=== PATIENT | female | born 1935 | race Caucasian/White ===

== ENCOUNTER 2019-10-22 15:15 | Emergency (ER) | payer MEDICARE ==
[2019-10-22 16:01] LABS: ABSOLUTE NEUTROPHIL COUNT 3.98; HEMATOCRIT 36.6 % (35.0-47.0); HEMOGLOBIN 11.1 gm/dl (11.6-16.0); MEAN CELL VOLUME 100.3 fl (81-97); MEAN CORPUSCULAR HEMOGLOBIN 30.4 pg (27-33); MEAN CORPUSCULAR HGB CONC 30.3 g/dl (32-36); MEAN PLATELET VOLUME 10.5 fl (7.4-10.4); PLATELET COUNT 237 K/uL (130-400); RED BLOOD COUNT 3.65 M/uL (3.80-5.40); RED CELL DISTRIBUTION WIDTH 14.9 % (11.5-14.5); WHITE BLOOD COUNT W/O DIFF 7.1 K/uL (4.2-12.2)
[2019-10-22 16:15] LABS: BLOOD UREA NITROGEN 13 mg/dL (8-23)
[2019-10-22 16:16] LABS: CREATININE 0.6 mg/dL (0.5-0.9); EST GLOMERULAR FILTRATION RATE > 60 mL/min; PLATELET ESTIMATE NORMAL (NORMAL); TOTAL PROTEIN 6.8 g/dL (6.6-8.7)
[2019-10-22 16:18] LABS: GLUCOSE,RANDOM 231 mg/dL (74-109)
[2019-10-22 16:21] LABS: ALB/GLOB RATIO 1.2 (1.1-1.8); ALBUMIN 3.7 g/dL (4.0-5.0); ALKALINE PHOSPHATASE 122 U/L (35-104); ALT/SGPT 10 U/L (<33); AST/SGOT 16 U/L (10.0-35.0)
--- NOTE | 2019-10-22 16:23 | Emergency Department Record ---
History of Present Illness - General Chief Complaint: Shortness of breath Stated Complaint: COUGH AND SOB Time Seen by Provider: 10/22/19 15:27 Source: Patient Mode of Arrival: Wheelchair Limitations: No limitations - History of Present Illness Initial Comments: pt here for increasing sob and cough. no fevers. MD Complaint: Cough, Shortness of breath -: Days(s) Severity: Mild Improves With: Nothing Worsens With: Nothing Known History Of: COPD Associated Symptoms: Cough Treatments Prior to Arrival: Bronchodilator - Related Data Home Oxygen Therapy: No Home Medications Medication Instructions Recorded Confirmed Last Taken Atorvastatin Calcium 20 mg PO DAILY 10/22/19 10/22/19 10/22/19 Calcium Carbonate/Vitamin D3 1 each PO DAILY 10/22/19 10/22/19 10/22/19 [Oyster Shell 250-Vit D3 125 Tb] Carvedilol 6.25 mg PO BID 10/22/19 10/22/19 10/22/19 Cetirizine HCl 10 mg PO BID 10/22/19 10/22/19 10/22/19 Clonidine HCl 0.1 mg PO BID 10/22/19 10/22/19 10/22/19 Famotidine 20 mg PO DAILY 10/22/19 10/22/19 10/22/19 Insulin Lispro Protamin/Lispro 23 unit SQ BID 10/22/19 10/22/19 10/22/19 [Humalog Mix 75-25 Kwikpen] Ipratropium/Albuterol [Duoneb] 3 ml IH Q4H 10/22/19 10/22/19 10/22/19 Multivitamin [Multi-Vitamin Daily] 1 each PO DAILY 10/22/19 10/22/19 Unknown Nystatin 1,000,000 unit ASDIR 10/22/19 10/22/19 Unknown Potassium Chloride 20 meq PO DAILY 10/22/19 10/22/19 10/22/19 Allergies Allergy/AdvReac Type Severity Reaction Status Date / Time JAYLEEN Inhibitors Allergy PT UNSURE Verified 10/22/19 15:28 OF REACTION codeine Allergy PT UNSURE Verified 10/22/19 15:28 OF REACTION losartan Allergy PT UNSURE Verified 10/22/19 15:28 OF REACTION montelukast Allergy PT UNSURE Verified 10/22/19 15:28 OF REACTION Penicillins Allergy PT UNSURE Verified 10/22/19 15:28 OF REACTION Sulfa (Sulfonamide Allergy PT UNSURE Verified 10/22/19 15:28 Antibiotics) OF REACTION Travel/Exposure Screening - Travel/Exposure Within Last 30 Days Have you traveled within the last 30 days?: No Additional Travel Detail:: T - Additonal Travel/Exposure Details Have you been exposed to anyone with a communicable illness?: No Exposure Details:: T Review of Systems Constitutional: Reports: Weakness. Denies: Chills, Fever, Malaise, Night sweats Eyes: Denies: Eye discharge, Eye pain, Photophobia, Vision change ENT: Reports: Congestion. Denies: Dental pain, Ear pain, Epistaxis Respiratory: Reports: Cough, Dyspnea. Denies: Hemoptysis, Stridor, Wheezes Cardiovascular: Reports: Arrhythmia, Chest pain, Dyspnea on exertion, Orthopnea, Palpitations. Denies: Murmurs Endocrine: Reports: Fatigue. Denies: Heat or cold intolerance, Polydipsia, Polyuria Gastrointestinal: Denies: Abdominal pain, Constipation, Diarrhea Genitourinary: Reports: As per HPI. Denies: Abnormal menses, Discharge Musculoskeletal: Reports: As per HPI, Arthralgia. Denies: Back pain, Gout Skin: Reports: As per HPI. Denies: Bruising, Change in color, Rash Neurological: Denies: Abnormal gait, Confusion, Headache Psychiatric: Denies: Anxiety, Auditory hallucinations, Suicidal thoughts, Visual hallucinations Hematological/Lymphatic: Denies: Anemia, Easy bleeding, Easy bruising Past Medical History - SOCIAL HISTORY Smoking Status: Never smoker Alcohol Use: None Drug Use: None - RESPIRATORY Hx Respiratory Disorders: Yes Hx COPD: Yes - CARDIOVASCULAR Hx Cardio Disorders: Yes Hx Hypertension: Yes Hx Irregular Heartbeat: Yes Comment:: high cholesterol - GI Hx GI Disorders: No - Hx Genitourinary Disorders: No - ENDOCRINE Hx Endocrine Disorders: Yes Hx Diabetes: Yes - MUSCULOSKELETAL Hx Musculoskeletal Disorders: No - PSYCH Hx Psych Problems: No - HEMATOLOGY/ONCOLOGY Hx Hematology/Oncology Disorders: No Family Medical History Any Significant Family History?: No Physical Exam - General General Appearance: Alert, Oriented x3, Cooperative, Mild distress - Head Head exam: Normal inspection - Eye Eye exam: Normal appearance, PERRL, EOMI Pupils: Normal accommodation - ENT ENT exam: Normal exam, Mucous membranes moist, Normal external ear exam, Normal orophraynx Ear exam: Normal external inspection. negative: External canal tenderness Nasal Exam: Normal inspection. negative: Discharge, Sinus tenderness Mouth exam: Normal external inspection, Tongue normal Teeth exam: Normal inspection. negative: Dental caries Throat exam: Normal inspection. negative: Tonsillar erythema, Tonsillar exudate - Neck Neck exam: Normal inspection, Full ROM. negative: Tenderness - Respiratory Respiratory exam: Normal lung sounds bilaterally. negative: Respiratory distress - Cardiovascular Cardiovascular Exam: Regular rate, Normal rhythm, Normal heart sounds - GI/Abdominal GI/Abdominal exam: Soft, Normal bowel sounds. negative: Tenderness - Rectal Rectal exam: Deferred - exam: Deferred - Extremities Extremities exam: Normal inspection, Full ROM, Normal capillary refill. negative: Tenderness - Back Back exam: Reports: Normal inspection, Full ROM. Denies: Muscle spasm, Rash noted, Tenderness - Neurological Neurological exam: Alert, CN II-XII intact, Normal gait, Oriented X3 - Psychiatric Psychiatric exam: Normal affect, Normal mood - Skin Skin exam: Dry, Intact, Normal color, Warm Course Vital Signs 10/22/19 10/22/19 10/22/19 15:25 15:31 16:15 Temperature 98.2 F Pulse Rate [ 94 H Left Radial] Respiratory 22 Rate Blood Pressure 198/101 [Left Arm] Pulse Ox 97 97 - Reevaluation(s) Reevaluation #1: 10/22/19 18:28 pt feels better. we attempted to get records and ekg for 3 hrs from [facility] and never received anything. ekg shows lbbb. sats 91-95 Medical Decision Making - Lab Data Result diagrams: 10/22/19 15:50 10/22/19 15:50 Lab Results 10/22/19 10/22/19 10/22/19 Range/Units 15:50 15:50 15:50 WBC 7.1 (4.2-12.2) K/uL RBC 3.65 L (3.80-5.40) M/uL Hgb 11.1 L (11.6-16.0) gm/dl Hct 36.6 (35.0-47.0) % MCV 100.3 H (81-97) fl MCH 30.4 (27-33) pg MCHC 30.3 L (32-36) g/dl RDW 14.9 H (11.5-14.5) % Plt Count 237 (130-400) K/uL MPV 10.5 H (7.4-10.4) fl Neutrophils % 61.0 (47-80) % Eosinophils % Not Reportable Basophils % Not Reportable Absolute Neutrophils 3.98 Lymphocytes 27.0 (16-45) % Monocytes 10.0 H (0-9) % Platelet Estimate Normal (NORMAL) RBC Morphology Normal Eosinophil Count 2.0 (0-6) % D-Dimer 0.89 H (0-0.59) mg/L FEU Sodium 137 (136-145) mmol/L Potassium 4.2 (3.4-4.5) mmol/L Chloride 97 L (98-107) mmol/L Carbon Dioxide 28.0 (22-29) mmol/L Anion Gap 12.0 (7-16) BUN 13 (8-23) mg/dL Creatinine 0.6 (0.5-0.9) mg/dL Estimated GFR > 60 mL/min Random Glucose 231 H (74-109) mg/dL Calcium 9.4 (8.8-10.2) mg/dL Total Bilirubin 0.30 (0.2-1.0) mg/dL AST 16 (10.0-35.0) U/L ALT 10 (<33) U/L Alkaline Phosphatase 122 H (35-104) U/L Total Protein 6.8 (6.6-8.7) g/dL Albumin 3.7 L (4.0-5.0) g/dL Globulin 3.1 (1.4-4.8) gm/dL Albumin/Globulin Ratio 1.2 (1.1-1.8) Disposition Disposition: Discharge Clinical Impression: COPD (chronic obstructive pulmonary disease) Qualifiers: COPD type: COPD with acute exacerbation Qualified Code(s): J44.1 - Chronic obstructive pulmonary disease with (acute) exacerbation Disposition: Home, Self-Care Condition: (1) Good Instructions: COPD (Chronic Obstructive Pulmonary Disease) (ED) Additional Instructions: follow up with family doctor. return sooner if worse Forms: Patient Portal Access Quality - Quality Measures Quality Measures: N/A - Blood Pressure Screening Does Patient Have Any of the Following: No Blood Pressure Classification: Pre-Hypertensive BP Reading Systolic Measurement: 190 Diastolic Measurement: 86 Screening for High Blood Pressure: < Pre-Hypertensive BP, F/U Documented > [G8950] Pre-Hypertensive Follow-up Interventions: Follow-up with rescreen every year.
[2019-10-22 16:51] LABS: INFLUENZA A NEGATIVE (NEGATIVE); INFLUENZA B NEGATIVE (NEGATIVE)
[2019-10-22] MEDS ORDERED: IPRATROPIUM/ALBUTEROL (0.5MG/3MG) NEB INH ONE (17:29)
[2019-10-22] MEDS ORDERED: METHYLPREDNISOLONE PF 125MG/VIAL IVP ONE (17:29)
--- NOTE | 2019-10-22 17:59 | CT ANGIOGRAM REPORT ---
EXAMINATION: CT Angiography of the Thorax EXAM DATE: 10/22/2019 5:23 PM TECHNIQUE: Standard protocol CT angiogram images were obtained through the chest following the admini stration of intravenous contrast. Coronal and sagittal MIP 3-D reformations were performed. IV Contrast: The amount and type of contrast are recorded in the medical record. INDICATION: sob. COMPARISON: None ENCOUNTER: Not applicable FINDINGS: Pulmonary Artery: No filling defects in the main, lobar, or segmental pulmonary arteries. The subsegm ental branches are not well assessed due to motion. Aorta: No thoracic aortic aneurysm or dissection is present. Right Heart Strain: None. Heart : Cardiomegaly. No pericardial effusion. There are coronary artery calcifications. Megan and Mediastinum: No lymphadenopathy. Lung Parenchyma: Low lung volumes. There is peripheral reticular opacity in the basilar regions. No focal lung consolidation. Central Airways: The central airways are clear. No flattening of the trachea may be related to expir atory phase. Minor bronchiectasis in the basilar lower lobes. Pleural Effusion: None. Upper Abdomen: Cholelithiasis. Approximately 2.5 cm left adrenal nodule with an internal density of greater than 20 Hounsfield units. Similar 14 mm right adrenal nodule. Musculoskeletal and Chest Wall: Unremarkable. IMPRESSION: 1. No acute pulmonary embolism. 2. Mild fibrotic change at the lung bases. 3. Cardiomegaly. 4. Cholelithiasis. 5. Indeterminant adrenal gland nodules. Dictated by: Usman Alberts MD on 10/22/2019 5:50 PM. .
== END 2019-10-22 19:11 | disposition home or self-care (01) ==
LOC: ER 15:15
DX: J44.1 Chronic obstructive pulmonary disease with (acute) exacerbation (principal); I10 Essential (primary) hypertension; E11.9 Type 2 diabetes mellitus without complications; Z79.4 Long term (current) use of insulin
CPT/HCPCS: 71275; 80053; 83880; 84484; 85027; 85379; 87400; 93005; 93010; 94640; 96374; 99284; J2930